=== PATIENT | male | born 1970 | race Caucasian/White ===

== ENCOUNTER 2017-05-07 19:25 | Emergency (ER) | payer OTHER ==
[~2017-05-07] VITALS: Ht 180.3 cm; Wt 180.8 kg
[~2017-05-07 19:25] MED LIST: INDOCIN25 MG PO; MELOXICAM7.5 MG PO; NAPROSYN500 MG PO; NORCO 7.5/321 TABLET PO; TELMISARTAN-HC1 EAC2 PO; TRAMADOL HCL50 MG PO
[2017-05-07 20:00] LABS: HEMATOCRIT 50.9 % (38.0-50.0); HEMOGLOBIN 17.4 G/DL (12.5-16.6); MCH 29.8 PG (29.0-34.0); MCHC 34.2 G/DL (30.0-36.0); MCV 87.3 FL (86-99); PLATELET COUNT 243 K/uL (156-360); RBC DIS.WIDTH-CV 13.5 % (11.8-14.6); RBC DIS.WIDTH-SD 43.1 % (39-53); RED BLOOD COUNT 5.83 M/uL (4.00-5.50); WHITE BLOOD COUNT 9.8 K/uL (4.1-10.2)
[2017-05-07 20:12] LABS: CHLORIDE 102 MEQ/L (99-109); POTASSIUM 4.3 MEQ/L (3.7-5.4); SODIUM 137 MEQ/L (136-147)
[2017-05-07 20:17] LABS: CREATININE 1.4 MG/DL (0.6-1.3); GFR ESTIMATE (CALCULATED) 57 mL/min/ (58.99-99999); GLUCOSE 80 mg/dL (70-99); UREA NITROGEN (BUN) 25 mg/dL (9-23)
[2017-05-07] MEDS ORDERED: MEDROL DOSEPAK4 MG PO (21:52)
[2017-05-07] MEDS ORDERED: ZITHROMAX Z-PA250 MG PO (21:52)
[2017-05-07] MEDS ORDERED: TESSALON PERLE100 MG PO (21:52)
[2017-05-07] MEDS ORDERED: VENTOLIN HFA18 GM IH (21:54)
[2017-05-07 22:38] VITALS: BP 157/94
== END 2017-05-07 22:52 | disposition home or self-care (01) ==
LOC: EME 19:25
DX: J20.9 Acute bronchitis, unspecified (principal); M79.89 Other specified soft tissue disorders; I12.9 Hypertensive chronic kidney disease with stage 1 through stage 4 chronic kidney disease, or unspecified chronic kidney disease; N18.9 Chronic kidney disease, unspecified
CPT/HCPCS: 71046; 80048; 83880; 85027; 94640; 99281; 99284; J7512